=== PATIENT | male | born 1975 | race Caucasian/White ===

== ENCOUNTER 2020-02-14 09:39 | Emergency (ER) | payer OTHER ==
[2020-02-14 17:08] LABS: SARS-CoV-2 MS2 Positive; SARS-CoV-2 N Gene Negative; SARS-CoV-2 S Gene Negative; SARS-CoV-2 by NAA Not Detected (NotDetected); SARS-CoV-2 orf1ab Negative
== END 2020-02-14 10:00 | disposition home or self-care (01) ==
LOC: ERS 09:39
DX: Z20.828 Contact with and (suspected) exposure to other viral communicable diseases (principal); F17.210 Nicotine dependence, cigarettes, uncomplicated
CPT/HCPCS: 87635; 99283; U0003

== ENCOUNTER 2020-07-14 11:10 | Emergency (ER) | payer OTHER, SELFPAY ==
[2020-07-14 20:49] LABS: SARS-CoV-2 PCR by NAA Not Detected (NotDetected)
== END 2020-07-14 11:30 | disposition home or self-care (01) ==
LOC: ERS 11:10
DX: Z20.822 Contact with and (suspected) exposure to COVID-19 (principal)
CPT/HCPCS: 87635; 99283; U0003; U0005